=== PATIENT | female | born 1995 | race Caucasian/White ===

== ENCOUNTER 2017-10-11 03:29 | Emergency (ER) | payer SELFPAY ==
[~2017-10-11] VITALS: Ht 165.1 cm; Wt 63.6 kg
[2017-10-11] MEDS ORDERED: FentaNYL CITRATE-PF 100 MCG/2 ML VIAL IVP ONE (04:00)
[2017-10-11 05:19] VITALS: BP 116/68
== END 2017-10-11 05:20 | disposition home or self-care (01) ==
LOC: EMS 03:30
DX: S43.102A Unspecified dislocation of left acromioclavicular joint, initial encounter (principal); Y08.89XA Assault by other specified means, initial encounter; Y92.89 Other specified places as the place of occurrence of the external cause; Y93.89 Activity, other specified; Y99.8 Other external cause status
CPT/HCPCS: 29240; 73030; 81025; 96374; 99284; J3010